=== PATIENT | female | born 1940 | race Asian ===

== ENCOUNTER 2020-09-08 14:00 | Outpatient (RCR) | payer MEDICARE ==
[~2020-09-08 14:00] MED LIST: ASPIRIN81 MG PO; HYDROCHLOROTHIA25 MG PO
== END 2020-09-19 ==
LOC: PT 14:00
PROVIDERS: ATTEND Specialist
DX: Z96.652 Presence of left artificial knee joint (principal); Z47.1 Aftercare following joint replacement surgery; M62.81 Muscle weakness (generalized); M25.462 Effusion, left knee

== ENCOUNTER 2022-09-06 05:20 | Observation (INO) | payer MEDICARE ==
[2022-09-05 09:08] LABS: BASOPHILS % 0.2 % (0.0-1.0); EOSINOPHILS # (AUTO) 0.1 (0.0-0.4); EOSINOPHILS % 1.1 % (0.0-6.0); HEMOGLOBIN 10.5 g/dL (12.0-16.0); LYMPHOCYTES # (AUTO) 1.5 (1.0-3.2); LYMPHOCYTES % 27.6 % (18.0-39.1); MEAN CORPUSCULAR HEMOGLOBIN 20.1 pg (28-32); MONOCYTES # (AUTO) 0.4 (0.2-0.8); NEUTROPHILS # (AUTO) 3.5 (2.1-6.9); NEUTROPHILS % 62.9 % (38.7-80.0); PLATELET COUNT 190 x10e3/uL (140-360); RED BLOOD COUNT 5.22 x10e6/uL (3.6-5.1); RED CELL DISTRIBUTION WIDTH 14.7 % (11.7-14.4)
[2022-09-05 09:30] LABS: ANION GAP 16.3 mmol/L (8-16); BLOOD UREA NITROGEN 23 mg/dL (7-26); BUN/CREATININE RATIO 27 (6-25); CALCIUM 11.1 mg/dL (8.4-10.2); CARBON DIOXIDE 30 mmol/L (22-29); CHLORIDE 98 mmol/L (98-107); CREATININE, SERUM 0.84 mg/dL (0.57-1.11); GLUCOSE 124 mg/dL (74-118); POTASSIUM 4.3 mmol/L (3.5-5.1); SODIUM 140 mmol/L (136-145)
[~2022-09-06] VITALS: Ht 149.9 cm; Wt 52.2 kg
[~2022-09-06 05:20] MED LIST changes: +LOSARTAN POTASS25 MG PO
[2022-09-06] MEDS ORDERED: GABAPENTIN 300 MG CAP ONE (06:10)
[2022-09-06] MEDS ORDERED: CELECOXIB 200 MG CAP ONE (06:10)
[2022-09-06] MEDS ORDERED: DEXAMETHASONE SOD PHOS 10 MG/1 ML VIAL ONE (06:10)
[2022-09-06] MEDS ORDERED: Vancomycin IV 1,000 MG ONE (06:35)
[2022-09-06] MEDS ORDERED: TRANEXAMIC ACID 10 ML ONE (06:35)
[2022-09-06] MEDS ORDERED: SODIUM CHLORIDE 0.9% 500ML 500 ML ONE (06:35)
[2022-09-06] MEDS ORDERED: ROPIVACAINE 246.25 MG, EPINEPHRINE HCL 1:1000 1ML 0.5 MG, CLONIDINE HCL 0.08 MG, KETORO... INJ ONE ×5 (08:00)
[2022-09-06] MEDS ORDERED: ONDANSETRON HCL INJ 2MG/ML 2ML 2 MG/ML VIAL IV PRN (08:45)
[2022-09-06] MEDS ORDERED: HYDROCODONE/APAP 7.5MG-325MG 1 EA TAB PO PRN (08:45)
[2022-09-06] MEDS ORDERED: DIPHENHYDRAMINE HCL INJ 50 MG/ML VIAL IV PRN (08:45)
[2022-09-06] MEDS ORDERED: ZOLPIDEM TARTRATE 5 MG TAB PO PRN (08:45)
[2022-09-06] MEDS ORDERED: HYDROCODONE/APAP 5MG-325MG TAB PO PRN (08:45)
[2022-09-06] MEDS ORDERED: DOCUSATE SODIUM 100 MG CAP PO PRN (08:45)
[2022-09-06] MEDS: SODIUM CHLORIDE 0.9% 1000ML 1,000 ML IV SCH ×2 (08:45→12:34)
[2022-09-06] MEDS ORDERED: ASPIRIN 325 MG TAB PO SCH (09:00)
[2022-09-06] MEDS ORDERED: CELECOXIB 100 MG CAP PO SCH (09:00)
[2022-09-06] MEDS ORDERED: ONDANSETRON HCL INJ 2MG/ML 2ML 2 MG/ML VIAL ONE (11:14)
[2022-09-06] MEDS ORDERED: HYDROCODON-ACE1 EA12 PO (12:00)
[2022-09-06 12:41] VITALS: BP 124/60
[2022-09-06] MEDS ORDERED: FENTANYL CITRATE/PF 100MCG/2 ML INJ ONE (13:16)
[2022-09-06 13:39] VITALS: BP 124/60
[2022-09-06] MEDS ORDERED: AMBIEN5 MG PO (13:54)
[2022-09-06] MEDS ORDERED: ACETAMINOPHEN 1000 MG/100 ML IV PRN (14:00)
[2022-09-06] MEDS ORDERED: ASPIRIN81 MG PO (15:46)
[2022-09-06 16:22] LABS: BASOPHILS % 0.1 % (0.0-1.0); HEMATOCRIT 28.4 % (34.2-44.1); HEMOGLOBIN 8.9 g/dL (12.0-16.0); LYMPHOCYTES # (AUTO) 0.4 (1.0-3.2); LYMPHOCYTES % 3.6 % (18.0-39.1); MEAN CORPUSCULAR HEMOGLOBIN 20.3 pg (28-32); MEAN CORPUSCULAR HGB CONC 31.3 g/dL (31-35); MEAN CORPUSCULAR VOLUME 64.7 fL (81-99); MONOCYTES # (AUTO) 0.1 (0.2-0.8); MONOCYTES % 0.9 % (4.4-11.3); NEUTROPHILS # (AUTO) 9.3 (2.1-6.9); NEUTROPHILS % 94.8 % (38.7-80.0); PLATELET COUNT 165 x10e3/uL (140-360); RED BLOOD COUNT 4.39 x10e6/uL (3.6-5.1); RED CELL DISTRIBUTION WIDTH 15.1 % (11.7-14.4)
[2022-09-06 16:32] VITALS: BP 99/59
[2022-09-06 16:40] LABS: ANION GAP 22.6 mmol/L (8-16); CALCIUM 8.9 mg/dL (8.4-10.2); CREATININE, SERUM 0.82 mg/dL (0.57-1.11); POTASSIUM 3.6 mmol/L (3.5-5.1)
== END 2022-09-06 18:09 | disposition home or self-care (01) ==
LOC: OR 05:20 → PACU V 08:43 → MED/SURG2 11:23
PROVIDERS: ADMIT Specialist; ATTEND Specialist
DX: M17.0 Bilateral primary osteoarthritis of knee (principal); I10 Essential (primary) hypertension; Z96.652 Presence of left artificial knee joint; Z20.822 Contact with and (suspected) exposure to COVID-19
CPT/HCPCS: 0223U; 27447; 36415 ×2; 71046; 73560; 80048 ×2; 85025 ×2; 86850; 86900; 86920; 93005; 94799; 96361; 97110; 97116; 97161; 97530; C1713; G0378; J0171; J0690; J1100; J1885; J2405; J2795; J3010; J3370; J7030; J7040